=== PATIENT | female | born 1965 | race Caucasian/White ===

== ENCOUNTER 2017-10-22 06:38 | Inpatient (IN) ==
[2017-10-22] MEDS ORDERED: ONDANSETRON 4 MG/2 ML INJECTION IVP ONE (06:44)
[2017-10-22] MEDS ORDERED: EPINEPHrine PF 0.25 MG, BUPIVACAINE 0.25% PF 30 ML, MORPHINE SULFATE 15 MG, KETOROLAC I... OPSITE ONE (06:44)
[2017-10-22] MEDS ORDERED: ACETAMINOPHEN 500 MG TABLET PO ONE (06:44)
[2017-10-22] MEDS ORDERED: TRANEXAMIC ACID 1,000mg/10ml INJECTION TOP ONE (06:44)
[2017-10-22] MEDS ORDERED: CEFAZOLIN 1 G INJECTION IVP ONE (06:44)
[2017-10-22] MEDS ORDERED: METOCLOPRAMIDE 10mg/2ml INJECTION IVP ONE (06:44)
[2017-10-22] MEDS ORDERED: NOZIN NASAL SWAB NAS ONE ×2 (06:44→11:27)
[2017-10-22] MEDS ORDERED: LIDOCAINE 1% (10mg/ml) 2mL INJ PF SDV ID ONE (06:44)
[2017-10-22] MEDS ORDERED: DEXAMETHASONE 4 MG/ML INJECTION IVP ONE (06:44)
[2017-10-22] MEDS ORDERED: FAMOTIDINE PB 20 MG/50 ML BAG IV ONE (06:44)
[2017-10-22] MEDS ORDERED: SALINE FLUSH 10ml SYRINGE IV PRN (06:44)
[2017-10-22] MEDS ORDERED: VANCOMYCIN 1,000 MG INJECTION ONE (06:50)
[2017-10-22 06:53] VITALS: BMI 21.3
[2017-10-22] MEDS: LR 1,000 ML IV SCH ×2 (07:20→08:55)
--- NOTE | 2017-10-22 08:13 | Anesthesia Preoperative Report ---
Anesthesia Preoperative Record - Date and Time Date: 10/22/17 Preoperative Diagnosis: Rt TKA M17.11 Proposed Procedure: right TKA, robot NPO Since Date: 10/21/17 NPO Since Time: 23:00 Allergies/Adverse Reactions: Allergies Allergy/AdvReac Type Severity Reaction Status Date / Time diclofenac [From Voltaren] Allergy Unknown Swelling Verified 10/17/17 12:00 erythromycin base Allergy Unknown Verified 10/17/17 12:00 methadone Allergy Unknown 'overdosed' Verified 09/09/17 13:19 even tho taking prescribed dose morphine Allergy Unknown hallucinati Verified 09/09/17 13:19 ons Sulfa (Sulfonamide Allergy Topical-caused Verified 09/09/17 13:19 Antibiotics) roger and rawness levofloxacin [From Levaquin] AdvReac Unknown severe Verified 09/09/17 13:19 nausea/vomiting NSAIDS (Non-Steroidal AdvReac Unknown GI Bleeding Verified 10/17/17 12:00 Anti-Inflamma - Vital Signs Vital Signs: Temperature 97.8 F 10/22/17 06:53 Pulse Rate 77 10/22/17 07:10 Respiratory Rate 18 10/22/17 06:53 Blood Pressure 117/78 10/22/17 06:53 Pulse Oximetry 96 10/22/17 06:53 Height and Weight: Height 5 ft 8 in Weight 63.6 kg Body Mass Index 21.3 - Medications Inpatient Medications: Current Medications Lactated Ringer's (Lactated Ringers) 1,000 mls @ 50 mls/hr IV .Q20H MINNIE Last Admin: 10/22/17 07:20 Dose: 50 mls/hr Epinephrine HCl 0.25 mg/Bupivacaine HCl 30 ml/Ketorolac Tromethamine 60 mg/ Sodium Chloride 62.25 mls @ 1 mls/hr OPSITE INTRAOP ONE PRN Reason: Protocol Stop: 10/24/17 22:29 Sodium Chloride (Iv Flush) 10 - 80 ml IV PRN PRN PRN Reason: [place] Home Medications: Home Medications Medication Instructions Recorded Confirmed Type Desmopressin Acetate 0.1 mg PO HS 09/09/17 10/22/17 History Ibuprofen 600 cap PO Q6HPRN PRN 09/09/17 10/22/17 History Levothyroxine Tab [Synthroid] 125 mcg PO ACB 09/09/17 10/22/17 History Lurasidone [Latuda] 40 mg PO NOON 09/09/17 10/22/17 History Multivitamin [One-A-Day Essential] 1 each PO DAILY 09/09/17 10/22/17 History [place]-3 Fatty Acids/Fish Oil 1 each PO BID 09/09/17 10/22/17 History [[place]-3 Fish Oil 1,000 mg Sfgl] Sertraline HCl [Zoloft] 150 mg PO HS 09/09/17 10/22/17 History lamoTRIgine [Lamictal] 150 mg PO BID 09/09/17 10/22/17 History Capsaicin [Salonpas-Hot] 1 each TP DAILY 10/22/17 10/22/17 History Is Patient on Beta Terrie?: No - Medical History Respiratory: DENIES: Asthma, Chronic Obstructive Pulmonary Disease (COPD) (denies), Sleep Apnea Gastrointestional: DENIES: Gastroesophageal Reflux Disease Neuro/Musculoskeletal: Reports: HX.MS.OSAR, Back Problems, Depression, Other ( fibromyalgia per h&p) Renal/Endocrine: Reports: Thyroid Disease (hypo) Other History: Reports: Anesthesia Reactions (n/v) - Surgical History Neurological Surgeries: Reports: Other (lumbar surgery x3 (x1 with hardware)) GI Surgery/Treatments: Reports: Appendectomy (ruptured), Cholecystectomy (lap), Other ('bowel surgery procedure-blockage' per h&p) Musculoskeletal Surgery/Tx: Reports: Knee Arthroscopy (left and right x5), Other (foot/toe surgery per h&p) Reproductive Surgery/Treatment: Reports: Breast Augmentation/Reduction (breast implants), Hysterectomy Anesthesia Reactions: Nausea and Vomiting Hx Family Anesthesia Reaction: No History of Motion Sickness: No - Social History Smoking Status: Former smoker (quit 1 month ago) Hx Chewing Tobacco Use: No Second Hand Exposure: Yes Substance Use Type: marijuana Alcohol Intake Frequency: does not drink - Pertinent Findings EKG: Sinus Rhythm EKG Ectopy: Bundle Branch Block - Physical Exam Respiratory Exam: Present: lungs clear, bilateral breath sounds equal Cardiovascular Exam: Present: regular rate and rhythm - Airway Assessment Mallampati Score: II TMD: 3 Fingerbreadths Neck Extension: poor Teeth: poor dentation Overall Assessment: no airway concerns - ASA ASA Score: 3 - Plan Anesthesia: General TIVA, General Inhalation Gases (as backup plan), Neuroaxial Regional/Trunk Block: Spinal - Discussion Discussion: Discussed risks/options/alternatives of anesthesia and questions answered. Patient consents. Nursing pain assessment noted. Present for Discussion: friend Attestation Statement: Prior to the delivery of any anesthetic medication, I examined the patient, developed the plan, obtained the patient's consent and discussed the risk and benefits of the procedure with the patient/guardian. - Additional Information Seen by Anesthesia: Yes
[2017-10-22] MEDS ORDERED: EPINEPHrine PF 0.25 MG, BUPIVACAINE 0.25% PF 30 ML, KETOROLAC INJ 60 MG in NS 30 ML OPSITE ONE (08:15)
[2017-10-22] MEDS ORDERED: MIDAZOLAM 2mg/2ml INJECTION ONE (08:36)
[2017-10-22] MEDS ORDERED: VANCOMYCIN 1,000 MG INJECTION IAR ONE (09:10)
[2017-10-22] MEDS ORDERED: PROPOFOL 500 MG/50 ML VIAL IV ONE (09:34)
[2017-10-22] MEDS ORDERED: ROPIVACAINE 0.5% (5mg/ml) 30ml INJ ONE (09:34)
[2017-10-22] MEDS ORDERED: FentaNYL 100 MCG/2 ML INJECTION ONE (09:47)
--- NOTE | 2017-10-22 10:00 | Operative Note ---
- Procedure Preoperative Diagnosis: Right knee primary degenerative joint disease Postoperative Diagnosis: Same as preoperative diagnosis. Surgeon: Pricila Miller MD Top Tile Decorator: Ulisses Chow Complications: None. Anesthesia: Spinal. Estimated Blood Loss: See Anesthesia Record. Fluids: Please see Anesthesia Record. Description of Procedure: Mrs. Harrell and her right knee were identified and marked in the preoperative holding area. She was brought back to the operating suite after a saphenous nerve block was placed in the preoperative holding area. Spinal anesthetic was administered and she was placed supine on the operating table. The right lower extremity was prepped and draped in my normal sterile fashion. Timeout was performed. The Tutellus robot was used during the surgery. She had a fixed varus deformity with a slight flexion contracture. A standard anterior midline incision followed by medial parapatellar arthrotomy was performed. Anterior fat pad and meniscus were removed. The patella was resurfaced to a size 32. Tibial and femoral arrays were placed both within the original incision. Checkpoints were then placed both in the femur and the tibia. The bone was then registered with the Tutellus robot. Osteophytes were removed and gaps were captured both 90 and 0 with correction. Components were manipulated using the software to obtain 19 mm gaps throughout. The Tutellus robotic arm was then used to assist with the bone cuts. Posterior osteophytes and remaining meniscus were removed. Trial components were placed. We used a 4 femur and a 5 tibia with a 11 mm spacer. She tracked well and was well balanced throughout range of motion after partial release of her PCL and MCL. Components fit well and bone quality was good suite seated with press-fit. The tibia was stamped the proper rotation and all components were then press-fit into position. The knee was ranged one more time to ensure good stability, balance and patellar tracking. 1 g of TXA was allowed to sit in the wound for 5 minutes and then suctioned out. 1 g of vancomycin powder was then placed into the knee joint. The capsulotomy was then closed with #1 Vicryl. I then left my web production assistant to close the subcutaneous tissue with 2-0 Vicryl. Running 4-0 Monocryl will be used in the subcuticular layer. Dermabond will be used on the skin followed by sterile dressing. After drapes are removed patient will be taken to recovery room under the care of anesthesia.
[2017-10-22] MEDS ORDERED: PROPOFOL 20 ML ONE (10:15)
--- NOTE | 2017-10-22 11:01 | Anesthesia Postoperative Note ---
- Date and Time Date: 10/22/17 Time: 11:01 - Status Patient Participated in Evaluation: Patient Participated in Person Vital Signs: Temperature 97.5 F 10/22/17 10:35 Pulse Rate 52 L 10/22/17 10:35 Respiratory Rate 14 10/22/17 10:35 Blood Pressure 105/57 10/22/17 10:35 Pulse Oximetry 97 10/22/17 10:35 Respiratory Function: Airway Patent Cardiovascular Function: Regular Pulse EKG: Sinus Rhythm Mental Status: Alert and Oriented Pain Intensity: 0 Hydration: IV Infusing Complications During Recover: None Apparent - Follow-Up Instructions Instructions: Per Surgeon
--- NOTE | 2017-10-22 11:01 | Anesthesia Procedure Note ---
Peripheral Nerve Blockade - Procedure Physician: Kedar Miller MD Date: 10/22/17 Surgical Procedure: right TKA, Robot Discussion: Discussed risks/options/alternatives of anesthesia and questions answered. Patient consents. Nursing pain assessment noted. Block Start: 10:42 Block Stop: 10:45 Blocked Employed: Adductor Canal Indication: Post-Operative Pain Approach: Right Side Confirmed Position: Supine Patient: Consent, Risks/Benefits Discussed, Informed, Post Block Act. Discussed IV Sedation: No (spinal still effective) Initial Vital Signs: Temperature 97.8 F 10/22/17 06:53 Temperature Source Oral 10/22/17 06:53 Pulse Rate 83 10/22/17 06:53 Respiratory Rate 18 10/22/17 06:53 Blood Pressure 117/78 10/22/17 06:53 Blood Pressure Mean 91 10/22/17 06:53 Pulse Oximetry 96 10/22/17 06:53 Oxygen Delivery Method 10/22/17 06:53 Post Vital Signs: Temperature 97.5 F 10/22/17 10:35 Pulse Rate 52 L 10/22/17 10:35 Respiratory Rate 14 10/22/17 10:35 Blood Pressure 105/57 10/22/17 10:35 Pulse Oximetry 97 10/22/17 10:35 Initial Pain Pain Score: 0 Post Block Pain Score: 0 Prep: Chlorhexadine/ETOH, Sterile Technique Ultrasound Used?: Yes - Injectate Ropivacaine (%): 0.5 Ropivacaine (mL): 30 Was Epi 1:200,000 Used?: No Injection: Injection made incrementally with constant monitoring and aspiration every 5 ml. negative aspirations
--- NOTE | 2017-10-22 11:13 | XRay Report ---
Indication: postoperative image PROCEDURE: XR knee RT 2V: Encounter: Initial Comparison: CT dated October 08, 2017 Findings: Postoperative changes of right total knee replacement are seen. There is expected postoperative subcutaneous gas. No evidence of hardware failure or acute fracture. No retained radiopaque surgical instruments or sponges. Overlying material causing artifact. Impression: New right total knee prosthesis without evidence of immediate complication. .
[2017-10-22] MEDS ORDERED: ONDANSETRON 4 MG/2 ML INJECTION IVP PRN (11:27)
[2017-10-22] MEDS ORDERED: DiphenhydrAMINE 25 MG CAPSULE PO PRN (11:27)
[2017-10-22] MEDS ORDERED: LORazepam 1 MG TABLET PO PRN (11:27)
[2017-10-22] MEDS ORDERED: WARFARIN - PHARMACY CONSULT MC ONE (11:27)
[2017-10-22] MEDS ORDERED: DiphenhydrAMINE 50 MG/ML INJECTION IVP PRN (11:27)
[2017-10-22] MEDS: NS 1,000 ML IV SCH (11:30)
[2017-10-22] MEDS: LURASIDONE 40mg TABLET PO SCH (11:52)
[2017-10-22] MEDS: Oxycodone *IR* 5 MG TABLET PO PRN ×4 (11:52→22:22)
[2017-10-22] MEDS: DOCUSATE SODIUM 100 MG CAPSULE PO SCH ×2 (11:55→22:07)
[2017-10-22] MEDS: POLYETHYL GLYCOL 3350 17gm PACKET PO SCH (11:55)
[2017-10-22] MEDS: ACETAMINOPHEN 325 MG TABLET PO SCH ×3 (12:32→22:07)
[2017-10-22] MEDS ORDERED: WARFARIN 5 MG TABLET PO ONE (13:17)
--- NOTE | 2017-10-22 13:26 | Pharmacy Consult ---
Pharmacy Consult-Warfarin - Consult Information COUMADIN CONSULT (Initial): Dx: RT Total Knee Arthroplasty Baseline INR = n/a. I ordered a dose of Warfarin 5mg today. The Pharmacy will continue to monitor the INR's and adjust the dosage of the Coumadin accordingly. Thank you for the Warfarin Dosing Protocol, Carl Lira, Pharmacist.
[2017-10-22] MEDS: NOZIN NASAL SWAB NAS SCH ×2 (15:07→22:10)
[2017-10-22] MEDS: CEFAZOLIN 2 G in NS 100 ML IV SCH (16:42)
[2017-10-22] MEDS: DEXAMETHASONE 20 MG/5 ML INJECTION IVP SCH (16:43)
[2017-10-22 20:14] VITALS: RESP 16
[2017-10-22] MEDS ORDERED: DESMOPRESSIN 0.2 MG TABLET PO SCH (21:00)
[2017-10-22] MEDS ORDERED: SERTRALINE 100 MG TABLET PO SCH (21:00)
[2017-10-22] MEDS ORDERED: SENNOSIDES 8.6 MG TABLET PO SCH (21:00)
[2017-10-22] MEDS: LAMOTRIGINE 100 MG TABLET PO SCH (22:08)
[2017-10-22] MEDS: ENOXAPARIN 40 MG/0.4 ML INJECTION SQ SCH (22:09)
[2017-10-22] MEDS: OMEGA-3 ACID ESTERS 1 GM CAPSULE PO SCH (22:11)
[2017-10-23] MEDS: NS 1,000 ML IV SCH (00:17)
[2017-10-23] MEDS: DEXAMETHASONE 20 MG/5 ML INJECTION IVP SCH (01:33)
[2017-10-23] MEDS: Oxycodone *IR* 5 MG TABLET PO PRN ×4 (01:41→13:00)
[2017-10-23] MEDS: CEFAZOLIN 2 G in NS 100 ML IV SCH (06:00)
[2017-10-23] MEDS: NOZIN NASAL SWAB NAS SCH ×2 (06:19→13:01)
[2017-10-23] MEDS ORDERED: LEVOTHYROXINE 125 MCG TABLET PO SCH (06:30)
--- NOTE | 2017-10-23 07:41 | Orthopedic Progress Note ---
Date: Date: 10/23/17 Time: 737 Subjective/Severity of Illness: Dulce is doing well. Pain is controlled. She has been up with good tolerance. No CP, cough or SOA reported. She plans on going to a nursing facility after discharge. Orthopedic Objective PO Vital signs: Temperature 97.5 F 10/23/17 04:00 Pulse Rate 62 10/23/17 04:00 Respiratory Rate 16 10/23/17 04:00 Blood Pressure 105/60 10/23/17 04:00 Pulse Oximetry 97 10/23/17 04:00 Height and Weight: Height 5 ft 8 in Weight 144 lb 6.444 oz Body Mass Index 21.3 - Constitutional General Appearance: Present: alert, cooperative, no acute distress - Respiratory Exam Present: non-labored - Cardiovascular Exam Present: pedal pulses intact - Extremities Exam Extremities: Present: pulses intact. Absent: calf tenderness - Surgical Site Incision: Mepilex dressing intact, dressing intact, no drainage - Integumentary Exam Absent: bruising, erythema - Neurological Exam Present: no deficits - Psychiatric Exam Present: alert - Labs Result Diagrams: 10/23/17 05:04 10/23/17 05:04 Abnormal lab results 10/23/17 10/23/17 Range/Units 05:04 05:04 Hgb 11.8 L (12-16) GM/DL Hct 35.4 L (36-46) % Creatinine 0.5 L (0.7-1.2) MG/DL Glucose 131 H (65-110) MG/DL H & H 10/23/17 Range/Units 05:04 Hgb 11.8 L (12-16) GM/DL Hct 35.4 L (36-46) % Coagulation 10/23/17 Range/Units 05:04 INR 1.17 (0.99-1.21) Orthopedic Assessment and Plan (1) Primary osteoarthritis of right knee Status: Acute Assessment and Plan: Lovenox bridge with Coumadin protocol for VTE prophylaxis. Pt takes Desmopressin which can increase factor VIII levels. Plan to keep INRs in the 1.5-2.5 range for 30 days after surgery. Begin Aspirin 81mg BID after the 30 day course of Coumadin is complete. SCD's and early mobilization for added DVT coverage. PT/OT services to improve independent function. Discharge Planning per Case Management. Pt plans on going to [facility] after discharge. - Anticoagulation Therapy Anticoagulation: Coumadin therapy with Lovenox bridge x30 days (Pt takes Desmopressin which can increase factor VIII levels.) Hospital Course Summary Disclaimer: The visit summary below is not to be considered part of the above Progress Note.
--- NOTE | 2017-10-23 07:56 | Extended Care Facility Orders ---
Admission Orders Admit to:: Custodial Allergies/Adverse Reactions: Allergies diclofenac [From Voltaren] Allergy (Unknown, Verified 10/17/17 12:00) Swelling erythromycin base Allergy (Unknown, Verified 10/17/17 12:00) per h&p dated 10-01-17 methadone Allergy (Unknown, Verified 09/09/17 13:19) 'overdosed' even tho taking prescribed dose states she was told her body does not process/excrete it morphine Allergy (Unknown, Verified 09/09/17 13:19) hallucinations Sulfa (Sulfonamide Antibiotics) Allergy (Verified 09/09/17 13:19) Topical-caused roger and rawness levofloxacin [From Levaquin] Adverse Reaction (Unknown, Verified 09/09/17 13:19) severe nausea/vomiting NSAIDS (Non-Steroidal Anti-Inflamma Adverse Reaction (Unknown, Verified 12:00) GI Bleeding Admitting Diagnosis: Rt TKA M17.11 Admitting Physician: Kedar Miller MD Attending Physician: Kedar Miller MD Anticiapted Length of Stay: 30 days or less Rehab Potential: good Rehab Prognosis: good Diet: 10/22/17 Lunch Regular Diet [DIET] Diet Modifications: Wound/Incision Care: Do not remove the Mepilex dressing. It was placed in the OR in a sterile environment and should not be pulled up to look under it unless you suspect an active infection. Please call Dr Miller if you suspect an infection. Keep the wound and dressing dry. May use Facility Protocol or Standing Orders: Yes May have flu vaccine: Yes Evaluations/Treatment: PT (WBAT, work with ROM and exercises. ), OT (WBAT, Work with ADLs, txfrs, exercises and ROM.) Custodial Certification: I certify that SNF services are required to be given on an Inpatient basis because of the patients need for [facility] care on a continuing basis for the condition(s) for which he/she received inpatient hospital services prior to his/her transfer to the SNF. SNF inpatient care is necessary for the following reasons Indication for Custodial: Postop Assessment Care - Additional Information In Event of Arrest: Start CPR,call 911,send patient to the ER Resident is Aware of Diagnosis: Yes Laboratory/Radiology: Lovenox bridge with Coumadin protocol for VTE prophylaxis. Pt takes Desmopressin which can increase factor VIII levels. Plan to keep INRs in the 1.5-2.5 range for 30 days after surgery. Begin Aspirin 81mg BID after the 30 day course of Coumadin is complete. Draw INR's every Saturday and and fax or call results to Dr Millre's office. , Call [phone]. If you cannot reach us thru the office number, please call [facility] ([phone]) and have the orthopedic machine scallop cutter paged. Referrals: Kedar Miller MD [Physician] - 11/13/17 1:15 pm Additional Orders: CHECK PT/INR EVERY SATURDAY AND SATURDAY FOR 4 WEEKS WHILE ON COUMADIN. CALL RESULTS TO DR. MILLER'S OFFICE P# [phone]. DX: Z79.01
[2017-10-23] MEDS: ACETAMINOPHEN 325 MG TABLET PO SCH ×2 (08:52→13:00)
[2017-10-23] MEDS: POLYETHYL GLYCOL 3350 17gm PACKET PO SCH (08:52)
[2017-10-23] MEDS: DOCUSATE SODIUM 100 MG CAPSULE PO SCH (08:52)
[2017-10-23] MEDS: OMEGA-3 ACID ESTERS 1 GM CAPSULE PO SCH (08:55)
[2017-10-23] MEDS: LAMOTRIGINE 100 MG TABLET PO SCH (08:55)
--- NOTE | 2017-10-23 10:17 | Pharmacy Consult ---
Pharmacy Consult-Warfarin - Laboratory Information 10/23/17 05:04 INR 1.17 - Consult Information Patient to receive 5 mg today of warfarin (2nd dose). INR = 1.17 today. Patient is also on Enoxaparin 40 mg SQ daily. Thank you. Gina Trujillo, PharmD
[2017-10-23] MEDS ORDERED: SENNOSIDES 8.6 MG TABLET PO PRN (10:31)
[2017-10-23 11:49] VITALS: BP 106/67; PULSE 65; TEMP 96.8; O2SAT 95
[2017-10-23] MEDS ORDERED: WARFARIN 5 MG TABLET PO SCH (12:00)
[2017-10-23] MEDS: LURASIDONE 40mg TABLET PO SCH (12:20)
--- NOTE | 2017-10-23 12:55 | Discharge Summary ---
Orthopedic Discharge Info Date of admission: 10/22/17 06:38 Primary care physician: Aubrey Urena II, MD Attending Physician: Kedar Miller MD Consults: 10/22/17 06:44 Consult to Anesthesiology [CONS] Routine Reason For Exam: Preoperative Assessment 10/22/17 11:27 Case Management Consult [CONS] Routine Reason For Exam: Discharge Planning DME-Walker [CONS] Routine Height: 5 ft 8 in Weight: 140 lb 3.424 oz Total Joint Outpatient Therapy [CONS] Routine Comment: Remove dressing in 2 weeks - Discharge Diagnosis (1) Primary osteoarthritis of right knee Status: Acute - Procedures Procedures: Right TKA - Laboratory Result Diagrams: 10/23/17 05:04 10/23/17 05:04 Laboratory: Abnormal lab results 10/23/17 10/23/17 Range/Units 05:04 05:04 Hgb 11.8 L (12-16) GM/DL Hct 35.4 L (36-46) % Creatinine 0.5 L (0.7-1.2) MG/DL Glucose 131 H (65-110) MG/DL H & H 10/23/17 Range/Units 05:04 Hgb 11.8 L (12-16) GM/DL Hct 35.4 L (36-46) % Coagulation 10/23/17 Range/Units 05:04 INR 1.17 (0.99-1.21) Orthopedic Discharge HPI - HPI Comments This patient was admitted for elective surgical tx of end stage degenerative joint disease that failed to respond to conservative treatment. Further details of this is found in the admission H&P. Orthopedic Hospital Course Hospital course: 10/23/17 12:50 After appropriate preoperative clearance and signing of operative consent, the patient was given IV antibiotics, according to orthopedic protocol. The patient was taken to the operating room and underwent elective joint arthroplasty. Following surgery, antibiotics were discontinued less than 24 hours according to joint protocol. Appropriate anticoagulants were initiated and SCDs added for DVT prevention. The dressing was clean, dry, and intact. Pain control was obtained via multimodal approach. Bowel motivation addressed with scheduled and PRN medications. Early mobilization was initiated through PT services. Discharge arrangements made by a collaborative effort between the patient and Case Management. Follow-up is scheduled in 2-3 weeks. Discharge instructions given by orthopedic providers and nursing staff at discharge. Discharge condition was good. Care extended to > 2 midnight stays?: No Discharge Plan - Med Rec/Dispo Referrals/Follow Up: Kedar Miller MD [Physician] - 11/13/17 1:15 pm Rosalie Instructions: [facility] [place] Ortho Postop Instructions Prescriptions: New Acetaminophen [Tylenol] 650 mg PO QID tablet Enoxaparin Sodium [Lovenox] 40 mg SQ Q24H #5 syringe Oxycodone *IR* [Roxicodone *Ir*] 5 - 15 mg PO Q3H PRN #60 tab PRN Reason: Breakthrough Pain PEG 3350 17gm PACKET [Miralax] 17 gm PO DAILY packet Warfarin [Coumadin] 2 tab PO NOON #60 tab Continue Multivitamin [One-A-Day Essential] 1 each PO DAILY Sertraline HCl [Zoloft] 150 mg PO HS lamoTRIgine [Lamictal] 150 mg PO BID Lurasidone [Latuda] 40 mg PO NOON [place]-3 Fatty Acids/Fish Oil [[place]-3 Fish Oil 1,000 mg Sfgl] 1 each PO BID Desmopressin Acetate 0.1 mg PO HS Levothyroxine Tab [Synthroid] 125 mcg PO ACB Capsaicin [Salonpas-Hot] 1 each TP DAILY Discontinued Ibuprofen 600 cap PO Q6HPRN PRN PRN Reason: Pain - Disposition 01 Discharged Home, Self-Care - Dismissal Complete Discharge Instructions are:: Complete
[2017-10-23] MEDS: ENOXAPARIN 40 MG/0.4 ML INJECTION SQ SCH (13:18)
[2017-10-24] MEDS ORDERED: BISACODYL 10 MG SUPPOSITORY RECTALLY SCH (20:00)
== END 2017-10-23 13:26 | disposition home health service (06) | DRG 470 ==
LOC: SRG 06:38
PROVIDERS: ADMIT Orthopaedic Surgery; ATTEND Orthopaedic Surgery